=== PATIENT | male | born 1945 | race Caucasian/White ===

== ENCOUNTER → 2017-07-21 | Outpatient (CLI) | payer MEDICARE, BC ==
[~2017-07-21] MED LIST: ACET-1718 PO; BENA20TA8; BENA40TA52 PO; DOXA1TAB38 PO; DOXA4TAB57; IBUP400T13 PO; METO-257 PO; METO100T20; NIFE-31; NIFE90TA51 PO; PRAV40TA77; PRAV40TA78 PO; [UNRECOGNIZED DRUG - CODE] TP
[2017-07-21 08:47] LABS: PLATELET COUNT, AUTOMATED 239 K/uL (150-450)
== END ==
LOC: LAB 08:07
PROVIDERS: ATTEND Internal Medicine Nephrology
DX: I12.9 Hypertensive chronic kidney disease with stage 1 through stage 4 chronic kidney disease, or unspecified chronic kidney disease (principal); E78.00 Pure hypercholesterolemia, unspecified; N18.3 Chronic kidney disease, stage 3 (moderate)
CPT/HCPCS: 36415; 81001; 82040; 82247; 82248; 82310; 82374; 82435; 82565; 82570; 82947; 84075; 84132; 84155; 84156; 84295; 84450; 84460; 84520; 85025

== ENCOUNTER → 2018-09-28 | Outpatient (CLI) | payer MEDICARE, BC ==
[~2018-09-28] MED LIST changes: +BENA20TA64; -BENA20TA8; -BENA40TA52 PO; +BENA40TA53 PO
== END ==
LOC: LAB 15:30
PROVIDERS: ATTEND Nurse Practitioner
DX: L82.0 Inflamed seborrheic keratosis (principal)
CPT/HCPCS: 88305